=== PATIENT | female | born 1945 | race Caucasian/White ===

== ENCOUNTER 2016-10-31 09:56 | Emergency (ER) | payer OTHER ==
[2016-10-31] MEDS ORDERED: PROTONIX IV ONE (10:47)
[2016-10-31] MEDS ORDERED: SODIUM CHLORIDE 0.9% INJ ONE (10:47)
--- NOTE | 2016-10-31 10:52 | PROVIDER DOCUMENTATION ---
HPI-General Adult - General Chief Complaint: Abdominal Pain Stated Complaint: EPIGASTRIC PAIN Time Seen by Provider: 10/31/16 10:11 Source: patient Allergies/Adverse Reactions: Patient Allergies Allergy/AdvReac Type Severity Reaction Status Date / Time No Known Allergies Allergy Verified 10/31/16 10:02 Home Medications: Home Medication List Medication Instructions Recorded Confirmed Last Taken Type Aspirin [Aspir-Low] 81 mg PO DAILY 10/31/16 10/31/16 Unknown History Carvedilol 6.25 mg PO BID 10/31/16 10/31/16 Unknown History Furosemide [Lasix] 40 mg PO DAILY 10/31/16 10/31/16 Unknown History Gabapentin 300 mg PO QHS 10/31/16 10/31/16 Unknown History Meloxicam 15 mg PO PRN PRN 10/31/16 10/31/16 Unknown History Montelukast [Singulair] 10 mg PO DAILY 10/31/16 10/31/16 Unknown History Nitrofurantoin Monohyd/M-Cryst 100 mg PO BID #14 capsule 10/31/16 Unknown Rx [Macrobid 100 mg Capsule] Ondansetron [Zofran] 4 mg PO Q6H PRN PRN #20 tablet 10/31/16 Unknown Rx Pantoprazole [Protonix] 40 mg PO DAILY 10/31/16 10/31/16 Unknown History Rosuvastatin Calcium [Crestor] 40 mg PO DAILY 10/31/16 10/31/16 Unknown History Tiotropium Dougherty Inhaler 18 mcg INH DAILY 10/31/16 10/31/16 Unknown History [Spiriva] - History of Present Illness -Gen Adult Nature of Presenting Problems: 71 y/o WF c CHF, AAA (between 3-4 cm per patient), COPD and PUD, c/o epigastric pain that began 4 days. ago. they recently moved from [place] 4 days ago, and states the pain began after they were walking from the to a club house, approx 1000 ft, and she became winded, and the pain started to occur. This is a dull aching pain, no radiation, not worsened with motrin. States since her hospitalization in May 2016 for heart failure, she has not been able to walk as far. When parking at a grocery store, she can complete her entire shopping and check out before having to rest, but states it worries him since she never used to become winded. Has an appt in November with Dr. Huerta for evaluation of AAA- this was found on an MRI when she presented for back pain last year.. We do not have records accessible to us for this. Denies nasuea, vomiting, diarrhea, constipation, feves, chills or unintentional weight loss/ weight gain. Onset/Duration: reports: 4 days ago Timing: reports: still present, intermittent Associated Symptoms: reports: fatigue. denies: anxiety, arm pain, back/neck pain, chest pain, constipation, cough, diaphoresis, diarrhea, dizziness, EENT symptoms, fever/chills, genitourinary problems, headaches, heartburn, joint pain , loss of appetite, malaise, muscle aches, sinus congestion/drainage, nausea, rash, seizure, shortness of breath, sensory/motor loss, pain with inspiration, swelling/mass in abdomen, syncope, vomiting, weakness, trouble walking Similar Symptoms Previously?: No Recently seen or treated by another doctor?: No Review of Systems - Adult - REVIEW OF SYSTEMS - ADULT Constitutional: reports: see HPI, fatique. denies: chills, fever Eyes: reports: no symptoms reported. denies: decreased vision, blurred vision, double vision, eye pain Ears, Nose, Mouth & Throat: reports: no symptoms reported. denies: ear pain, nose pain, throat pain Cardiovascular: reports: no symptoms reported. denies: chest pain, irregular heart rate, palpitations Respiratory: reports: no symptoms reported. denies: cough, shortness of breath , wheezing Gastrointestinal: reports: see HPI, abdominal pain. denies: diarrhea, nausea, vomiting Genitourinary: reports: no symptoms reported. denies: dysuria, discharge, frequency Musculoskeletal: reports: no symptoms reported. denies: bone pain, back pain, joint pain, muscle aches Integumentary: reports: no symptoms reported. denies: rash Neurological: reports: no symptoms reported. denies: headache/migraines Psychiatric: reports: no symptoms reported Endocrine: reports: no symptoms reported Hematologic/Lymphatic: reports: no symptoms reported Allergic/Immunologic: reports: no symptoms reported All Other Systems: Reviewed and Negative Past History - Adult - PAST MEDICAL HISTORY-ADULT Review of Records: reports: Old Records Reviewed, Nursing Assessment Review, Medications Reviewed Major Childhood Illnesses: reports: denies history Cardiovascular: reports: aortic disease (AAA), CHF, HTN Respiratory: reports: COPD Gastrointestinal: reports: denies history Obstetrical/Gynecological: reports: denies history Genitourinary: reports: denies history Musculoskeletal: reports: denies history Neurological: reports: denies history Endocrine/Immune: reports: denies history Other Conditions: reports: denies history - PRIOR SURGERIES/PROCEDURES Surgical/Procedure History: reports: reviewed, not pertinent - IMMUNIZATION STATUS Childhood Immunizations: See Nurse Assessment Flu Vaccine: See Nurse Assessment - FAMILY HISTORY Family History: reviewed, not pertinent - SOCIAL HISTORY Smoking: denies Substance Use: none/never Alcohol Use Frequency: never Physical Exam-General - PHYSICAL EXAM-ADULT Initial Vital Signs Reviewed: Yes - CONSTITUTIONAL General Appearance: appears well, alert, no apparent distress - EYES Eyes: PERRL/EOMI, pink conjunctivae - HEAD, EARS, NOSE, MOUTH & THROAT HENMT: normocephalic/atraumatic, moist mucous membranes - NECK Neck: non-tender, full range of motion, supple, normal inspection. negative: lymphadenopathy - RESPIRATORY Respiratory: chest non-tender, lungs clear, normal breath sounds, no pleuratic chest pain, no respiratory distress, no accessory muscle use. negative: respiratory distress, decreased breath sounds, accessory muscle use, crackles, rales, rhonchi, wheezing - CARDIOVASCULAR Cardiovascular: normal peripheral pulses, regular rate, rhythm, no edema, no gallop, no JVD, no murmur - GASTROINTESTINAL (ABDOMEN) Abdominal Exam: normal bowel sounds, soft, no organomegaly, no pulsatile mass, tenderness (mild to epigastric region). negative: abdominal bruit, abnormal bowel sounds, distended, guarding, rigid, rebound - MUSCULOSKELETAL Extremity: normal range of motion, non-tender, normal gait, normal inspection, swelling Peripheral Pulses: radial (R): 2+, radial (L): 2+, dorsalis-pedis (R): 2+, dorsalis-pedis (L): 2+ - SKIN Integumentary: normal color, normal turgor, warm/dry - NEUROLOGIC Neurologic: grossly normal, no motor/sensory deficits - PSYCHIATRIC Psych/Mental Status: normal mood/affect, normal thought content, normal thought process, oriented x 3 Progress - PLAN OF CARE/RESULTS Progress/Plan/Lab Results: Vital Signs Temp Pulse Resp BP Pulse Ox 10/31/16 09:57 97.9 F 76 16 153/85 99 No Known Allergies Allergy (Verified 10/31/16 10:02) Aspirin [Aspir-Low] 81 mg PO DAILY 10/31/16 Carvedilol 6.25 mg PO BID 10/31/16 Furosemide [Lasix] 40 mg PO DAILY 10/31/16 Gabapentin 300 mg PO QHS 10/31/16 Meloxicam 15 mg PO PRN PRN 10/31/16 Montelukast [Singulair] 10 mg PO DAILY 10/31/16 Pantoprazole [Protonix] 40 mg PO DAILY 10/31/16 Rosuvastatin Calcium [Crestor] 40 mg PO DAILY 10/31/16 Tiotropium Dougherty Inhaler [Spiriva] 18 mcg INH DAILY 10/31/16 Dietary Diet NPO Start MonOct 31 1045 Laboratory 10/31/16 10/31/16 10/31/16 11:55 11:55 11:55 WBC 8.70 RBC 4.06 L Hgb 11.8 L Hct 34.9 L MCV 86.0 MCH 29.1 MCHC 33.8 RDW Std Deviation 12.4 Plt Count 273 MPV 9.9 Immature Gran % (Auto) 0.2 Neut % (Auto) 73.0 Lymph % (Auto) 14.8 L [place] % (Auto) 7.1 Eos % (Auto) 4.4 Baso % (Auto) 0.5 Immature Gran # (Auto) 0.02 Neut # (Auto) 6.35 Lymph # (Auto) 1.29 [place] # (Auto) 0.62 H Eos # (Auto) 0.38 Baso # (Auto) 0.04 Sodium Potassium Chloride Carbon Dioxide Anion Gap BUN Creatinine Estimated GFR/1.73 m2 BUN/Creatinine Ratio Glucose Calculated Osmolality Calcium Total Bilirubin AST ALT Alkaline Phosphatase Bgi-U-Bbtxrmhpyda Pept 297 Total Protein Albumin Globulin Albumin/Globulin Ratio Amylase Lipase Urine Source CLEAN CATCH Urine Color YELLOW Urine Clarity CLEAR Urine pH 7.0 Ur Specific [place] 1.000 Urine Protein NEGATIVE Urine Ketones NEGATIVE Urine Blood NEGATIVE Urine Nitrite NEGATIVE Urine Bilirubin NEGATIVE Urine Urobilinogen NORMAL Urine Microscopic RBC Not Reportable Urine WBC 2+ A Urine Microscopic WBC 20-40 A Ur Epithelial Cells <10 Urine Bacteria 1+ Urine Glucose NEGATIVE 10/31/16 11:55 WBC RBC Hgb Hct MCV MCH MCHC RDW Std Deviation Plt Count MPV Immature Gran % (Auto) Neut % (Auto) Lymph % (Auto) [place] % (Auto) Eos % (Auto) Baso % (Auto) Immature Gran # (Auto) Neut # (Auto) Lymph # (Auto) [place] # (Auto) Eos # (Auto) Baso # (Auto) Sodium 128 L Potassium 3.6 Chloride 88 L Carbon Dioxide 27 Anion Gap 13 BUN 19 Creatinine 0.9 Estimated GFR/1.73 m2 > 60 BUN/Creatinine Ratio 21 Glucose 95 Calculated Osmolality 259 Calcium 9.6 Total Bilirubin 0.50 AST 18 ALT 12 Alkaline Phosphatase 71 Wyb-O-Fbgyyedpwal Pept Total Protein 8.1 Albumin 4.8 Globulin 3.0 Albumin/Globulin Ratio 1.0 Amylase 71 Lipase 30 Urine Source Urine Color Urine Clarity Urine pH Ur Specific [place] Urine Protein Urine Ketones Urine Blood Urine Nitrite Urine Bilirubin Urine Urobilinogen Urine Microscopic RBC Urine WBC Urine Microscopic WBC Ur Epithelial Cells Urine Bacteria Urine Glucose Orders Category Date Time Status Saline Loc DIRECTED Care 10/31/16 10:45 Active NPO Diet 10/31/16 10:45 Active US ABDOMEN-COMPLETE [US] Stat Exams 10/31/16 10:45 Draft AMYLASE [CHEM] Stat Lab 10/31/16 11:55 Completed CBC WITH ELECTRONIC DIFF [HEME] Stat Lab 10/31/16 11:55 Completed COMPREHENSIVE METABOLIC PANEL [CHEM] Stat Lab 10/31/16 11:55 Completed LIPASE [CHEM] Stat Lab 10/31/16 11:55 Completed PRO B-NATRIURETIC PEPTIDE Stat Lab 10/31/16 11:[address] W/POSS RFLX CULT [URINALYSIS] Stat Lab 10/31/16 11:55 Completed URINE CULTURE [RM] Routine Lab 10/31/16 13:58 Ordered 0.9% Sodium Chloride Inj [Ns] 500 ml Med 10/31/16 12:39 Discontinued IV 999 mls/hr Morphine Med 10/31/16 11:08 Discontinued 2 mg IV NOW ONE Ondansetron [Zofran] Med 10/31/16 11:08 Discontinued 4 mg IV NOW ONE Pantoprazole [Protonix] Med 10/31/16 10:47 Discontinued 40 mg IV NOW ONE Sodium Chloride 0.9% Med 10/31/16 10:47 Discontinued 10 ml INJ NOW ONE EKG [EKG] Stat Ther 10/31/16 10:46 Ordered - ULTRASOUND (By Radiology) 1 US Study: Abdomen Impression: Abnormal (3.4 cm AAA) Departure - Departure Time of Disposition Order: 14:00 DIAGNOSIS: Acute UTI, Hyponatremia Abdominal pain Qualifiers: Abdominal location: epigastric Qualified Code(s): R10.13 - Epigastric pain AAA (abdominal aortic aneurysm) Qualifiers: Presence of rupture: without rupture Qualified Code(s): I71.4 - Abdominal aortic aneurysm, without rupture Disposition: HOME 01 Certified Medical Emergency: Emergent Condition: Stable Additional Instructions: Follow up with Dr. Huerta ED Follow Up Instructions: You have been treated by a care provider in the Emergency Department. These instructions are being provided to you so you can have an understanding of how to care for yourself upon discharge. Upon discharge from the Emergency Department, you are responsible for making arrangements for follow-up care by a physician of your choice. Take all prescribed medications as directed. Return to the Emergency Department immediately for any new or worsening symptoms. You may call the Physician Referral phone number at [phone] to obtain a list of Physicians who are taking new patients. Prescriptions: Nitrofurantoin Monohyd/M-Cryst [Macrobid 100 mg Capsule] 100 mg PO BID #14 capsule Ondansetron [Zofran] 4 mg PO Q6H PRN PRN #20 tablet PRN Reason: Nausea Attestation - Physician/ KIMO Attestation Patient care was provided by Advanced Practice Provider:: Yes Advanced Practice Provider:: Dixie Melgoza Advanced Practice Provider documentation review:: The Mid-level provider documentation, treatment plan and medical decision making was reviewed by the physician who agrees with all treatment and medical decision making by the MLP.
[2016-10-31] MEDS ORDERED: ZOFRAN IV ONE (11:08)
[2016-10-31] MEDS ORDERED: MORPHINE IV ONE (11:08)
--- NOTE | 2016-10-31 11:47 | Diag Imaging Result Document ---
PROCEDURE NAME: US ABDOMEN-COMPLETE - 10/31/2016 ABDOMINAL ULTRASOUND: FINDINGS: The pancreatic head and body are normal in appearance. The distal abdominal aorta is dilated to 4.3 cm in transverse dimension and 3.4 cm in AP dimension. The inferior vena cava is unremarkable. The liver is unremarkable, and there is antegrade flow in the portal vein. The common bile duct measures 6 mm. The gallbladder is clear and nontender. The spleen is not enlarged. There are no abnormal fluid collections. The kidneys are without evidence of hydronephrosis. There is a 3.7 cm cyst in the upper pole of the left kidney. IMPRESSION: Abdominal aortic aneurysm as described. [facility]
[2016-10-31 12:03] LABS: MANUAL DIFF NEEDED? NO
[2016-10-31 12:05] LABS: BASO% 0.5 % (0.0-0.8); EOS# 0.38 X1000 (0.0-0.7); EOS% 4.4 % (0.0-10.0); HEMATOCRIT 34.9 % (37.0-47.0); HEMOGLOBIN 11.8 g/dL (12.0-16.0); IMM GRAN# 0.02 X1000 (0.0-0.04); IMM GRAN% 0.2 % (0.0-0.5); LYMPH# 1.29 X1000 (1.2-3.4); LYMPH% 14.8 % (20.5-51.1); MCH 29.1 PG (27-31); MCHC 33.8 g/dL (33-37); MONO# 0.62 X1000 (0.11-0.59); MONO% 7.1 % (1.7-9.3); MPV 9.9 FL (7.4-10.4); PLT 273 X1000 (130-400); RBC 4.06 XMIL (4.2-5.4)
[2016-10-31 12:24] LABS: AGAP 13; ALBUMIN 4.8 g/dL (3.5-5.0); ALKALINE PHOSPHATASE 71 U/L (32-104); AMYLASE 71 U/L (20-200); BUN 19 mg/dL (8-22); CALCIUM 9.6 mg/dL (8.8-10.2); CHLORIDE 88 mmol/L (98-107); COSMO 259; GOT 18 U/L (10-30); GPT 12 U/L (10-36); LIPASE 30 U/L (13-60); POTASSIUM 3.6 mmol/L (3.5-5.1); SODIUM 128 mmol/L (136-145); TCO2 27 mmol/L (25-35); TOTAL PROTEIN 8.1 g/dL (6.3-8.3)
[2016-10-31] MEDS ORDERED: NS 500 ML IV ONE (12:39)
[2016-10-31 13:18] LABS: URINE SOURCE CLEAN CATCH
[2016-10-31 13:55] LABS: BILIRUBIN URINE NEGATIVE (NEGATIVE); BLOOD URINE NEGATIVE (NEGATIVE); CLARITY CLEAR (CLEAR); COLOR YELLOW; GLUCOSE URINE NEGATIVE (NEGATIVE); LEUKOCYTES URINE 2+ (NEGATIVE); NITRITE URINE NEGATIVE (NEGATIVE); PROTEIN URINE NEGATIVE (NEGATIVE); UROBILINOGEN URINE NORMAL
[2016-10-31 13:58] LABS: URINE CULTURE PL NEEDED? YES; URINE EPITHELIAL CELLS <10 /HPF (<10); URINE WBC 20-40 /HPF (<10)
[2016-10-31 15:17] VITALS: BP 140/081
== END 2016-10-31 14:20 | disposition home or self-care (01) ==
LOC: P.ED 09:56
DX: I71.4 Abdominal aortic aneurysm, without rupture (principal); N39.0 Urinary tract infection, site not specified; E87.1 Hypo-osmolality and hyponatremia; R10.13 Epigastric pain; R53.83 Other fatigue; R10.816 Epigastric abdominal tenderness; I50.9 Heart failure, unspecified; I10 Essential (primary) hypertension; Z79.899 Other long term (current) drug therapy; J44.9 Chronic obstructive pulmonary disease, unspecified; Z79.82 Long term (current) use of aspirin
CPT/HCPCS: 76700; 80053; 81001; 82150; 83690; 83880; 85025; 87077; 87088; 93005; C9113; J2270; J2405; J7040; S0164

== ENCOUNTER 2016-12-14 16:57 | Inpatient (IN) ==
[2016-12-14] MEDS ORDERED: ASPIRIN PO STA (17:27)
[2016-12-14] MEDS ORDERED: NS 1,000 ML IV ONE ×2 (17:27→19:43)
[2016-12-14] MEDS ORDERED: TYLENOL PO ONE (17:33)
--- NOTE | 2016-12-14 17:33 | PROVIDER DOCUMENTATION ---
This chart was entered by Pantera Stokes Scribe, acting as scribe for Miryam Rosenberg MD. HPI-Fever - General Chief Complaint: Fever Stated Complaint: UTI SX Time Seen by Provider: 12/14/16 17:18 Source: patient, family Allergies/Adverse Reactions: Patient Allergies Allergy/AdvReac Type Severity Reaction Status Date / Time No Known Allergies Allergy Verified 10/31/16 10:02 Home Medications: Home Medication List Medication Instructions Recorded Confirmed Last Taken Type Aspirin [Aspir-Low] 81 mg PO DAILY 10/31/16 12/15/16 12/13/16 History Carvedilol 6.25 mg PO BID 10/31/16 12/15/16 12/13/16 History Furosemide [Lasix] 40 mg PO DAILY 10/31/16 12/15/16 12/13/16 History Gabapentin 300 mg PO QHS 10/31/16 12/15/16 12/13/16 History Meloxicam 15 mg PO DAILY PRN PRN 10/31/16 12/15/16 12/13/16 History Montelukast [Singulair] 10 mg PO DAILY 10/31/16 12/15/16 12/13/16 History Pantoprazole [Protonix] 40 mg PO DAILY@0700 10/31/16 12/15/16 12/13/16 History Tiotropium Alfred Inhaler 18 mcg INH DAILY 10/31/16 12/15/16 12/13/16 History [Spiriva] Albuterol Sulfate [Ventolin Hfa] 1 inh INH DIRECTED 12/14/16 12/15/16 History Rosuvastatin Calcium [Crestor] 40 mg PO DAILY 12/15/16 12/15/16 12/13/16 History - History of Present Illness-Fever Nature of Presenting Problem: patient is a 71 y/o F that presents to the ER with fever, headache, weakness, urinary frequency and dysruia, abdominal pain, n/v, and decreased ability to ambulate. patient started to have urinary symptoms last week, took OTC meds. Today she began to have high fever( 104), n/v, weakness, and abdominal pain. patient was treated a month ago x 2 for UTI's. Fever Severity/Quality: reports: greater than 102 F Onset/Duration: reports: gradual, 1 week ago Timing: reports: still present, getting worse (today) Severity: reports: severe Context: reports: none Recent Illness?: reports: UTI Cognitive Baseline: alert, oriented x3 Modifying Factors: improves with: nothing Associated Symptoms: reports: dizziness, fatigue, fever/chills, genitourinary problems, headaches, loss of appetite, nausea, vomiting, weakness, trouble walking. denies: back/neck pain, chest pain, cough, rash, shortness of breath Similar Symptoms Previously?: Yes Recently seen or treated by another doctor?: Yes - Glascow Coma Score Best Eye Response (Denise): (4) open spontaneously Best Verbal Response (Denise): (5) oriented Best Motor Response (Denise): (6) obeys commands Denise Total: 15 Review of Systems - Adult - REVIEW OF SYSTEMS - ADULT Constitutional: reports: chills, fever, fatique Eyes: denies: decreased vision, blurred vision, double vision Ears, Nose, Mouth & Throat: denies: ear discharge, ear pain, sinus problem, throat pain, throat swelling Cardiovascular: denies: chest pain, palpitations Respiratory: denies: cough, shortness of breath, wheezing Gastrointestinal: reports: abdominal pain, nausea, vomiting. denies: constipation, diarrhea Genitourinary: reports: dysuria, frequency, urgency. denies: hesitency Musculoskeletal: reports: muscle weakness. denies: back pain, joint pain Integumentary: reports: no symptoms reported Neurological: reports: headache/migraines. denies: dizziness/vertigo, seizure, syncope Psychiatric: reports: no symptoms reported Endocrine: reports: no symptoms reported Hematologic/Lymphatic: reports: no symptoms reported Allergic/Immunologic: reports: no symptoms reported All Other Systems: Reviewed and Negative Past History - Adult - PAST MEDICAL HISTORY-ADULT Review of Records: reports: Old Records Reviewed, Nursing Assessment Review, Medications Reviewed Cardiovascular: reports: aortic disease (AAA), CHF, HTN Respiratory: reports: COPD - PRIOR SURGERIES/PROCEDURES Surgical/Procedure History: reports: reviewed, not pertinent - IMMUNIZATION STATUS Childhood Immunizations: See Nurse Assessment Flu Vaccine: See Nurse Assessment - FAMILY HISTORY Family History: reviewed, not pertinent - SOCIAL HISTORY Smoking: non-smoker Living Situation: family Physical Exam-General - PHYSICAL EXAM-ADULT Initial Vital Signs Reviewed: Yes - CONSTITUTIONAL General Appearance: alert, mild distress, moderate distress - EYES Eyes: PERRL/EOMI, pink conjunctivae - HEAD, EARS, NOSE, MOUTH & THROAT HENMT: normocephalic/atraumatic, moist mucous membranes, normal ENT inspection - NECK Neck: full range of motion, normal inspection - RESPIRATORY Respiratory: lungs clear, normal breath sounds, no respiratory distress, no accessory muscle use - CARDIOVASCULAR Cardiovascular: no JVD, no murmur, tachycardia - GASTROINTESTINAL (ABDOMEN) Abdominal Exam: normal bowel sounds, soft, tenderness (suprapubic) - MUSCULOSKELETAL Extremity: normal range of motion, normal inspection, no pedal edema - SKIN Integumentary: normal color, warm/dry - NEUROLOGIC Neurologic: grossly normal, no motor/sensory deficits - PSYCHIATRIC Psych/Mental Status: normal mood/affect, normal thought content, normal thought process, oriented x 3 Progress - PLAN OF CARE/RESULTS Progress/Plan/Lab Results: Laboratory Results - last 24 hr 12/14/16 12/14/16 12/14/16 17:44 17:44 17:44 WBC RBC Hgb Hct MCV MCH MCHC RDW Std Deviation Plt Count MPV Immature Gran % (Auto) Neut % (Auto) Lymph % (Auto) [place] % (Auto) Eos % (Auto) Baso % (Auto) Immature Gran # (Auto) Neut # (Auto) Lymph # (Auto) [place] # (Auto) Eos # (Auto) Baso # (Auto) PT INR APTT (Factor Assay) D-Dimer Sodium 135 L Potassium 3.2 L Chloride 96 L Carbon Dioxide 24 L Anion Gap 15 BUN 20 Creatinine 1.1 H Estimated GFR/1.73 m2 49 BUN/Creatinine Ratio 18 Glucose 131 H Calculated Osmolality 275 Calcium 9.3 Magnesium 1.7 Total Bilirubin 0.60 AST 54 H ALT 49 H Alkaline Phosphatase 68 Creatine Kinase 65 Troponin T < 0.010 Xsb-U-Imcfdhhhadz Pept Total Protein 7.3 Albumin 4.2 Globulin 3.0 Albumin/Globulin Ratio 1.0 Plasma Lactate 1.4 Urine Source Urine Color Urine Clarity Urine pH Ur Specific [place] Urine Protein Urine Ketones Urine Blood Urine Nitrite Urine Bilirubin Urine Urobilinogen Urine Microscopic RBC Urine WBC Urine Microscopic WBC Ur Epithelial Cells Urine Bacteria Urine Glucose 12/14/16 12/14/16 12/14/16 17:44 17:44 17:44 WBC 10.47 RBC 3.46 L Hgb 10.2 L Hct 31.3 L MCV 90.5 MCH 29.5 MCHC 32.6 L RDW Std Deviation 13.5 Plt Count 184 MPV 10.1 Immature Gran % (Auto) 0.2 Neut % (Auto) 89.5 H Lymph % (Auto) 4.1 L [place] % (Auto) 5.2 Eos % (Auto) 0.7 Baso % (Auto) 0.3 Immature Gran # (Auto) 0.02 Neut # (Auto) 9.38 H Lymph # (Auto) 0.43 L [place] # (Auto) 0.54 Eos # (Auto) 0.07 Baso # (Auto) 0.03 PT 12.9 INR 0.94 APTT (Factor Assay) 34.2 D-Dimer 1.24 H Sodium Potassium Chloride Carbon Dioxide Anion Gap BUN Creatinine Estimated GFR/1.73 m2 BUN/Creatinine Ratio Glucose Calculated Osmolality Calcium Magnesium Total Bilirubin AST ALT Alkaline Phosphatase Creatine Kinase Troponin T Cim-C-Fgmjoerewhb Pept 846 H Total Protein Albumin Globulin Albumin/Globulin Ratio Plasma Lactate Urine Source Urine Color Urine Clarity Urine pH Ur Specific [place] Urine Protein Urine Ketones Urine Blood Urine Nitrite Urine Bilirubin Urine Urobilinogen Urine Microscopic RBC Urine WBC Urine Microscopic WBC Ur Epithelial Cells Urine Bacteria Urine Glucose 12/14/16 18:20 WBC RBC Hgb Hct MCV MCH MCHC RDW Std Deviation Plt Count MPV Immature Gran % (Auto) Neut % (Auto) Lymph % (Auto) [place] % (Auto) Eos % (Auto) Baso % (Auto) Immature Gran # (Auto) Neut # (Auto) Lymph # (Auto) [place] # (Auto) Eos # (Auto) Baso # (Auto) PT INR APTT (Factor Assay) D-Dimer Sodium Potassium Chloride Carbon Dioxide Anion Gap BUN Creatinine Estimated GFR/1.73 m2 BUN/Creatinine Ratio Glucose Calculated Osmolality Calcium Magnesium Total Bilirubin AST ALT Alkaline Phosphatase Creatine Kinase Troponin T Pwf-X-Novmvjrrbki Pept Total Protein Albumin Globulin Albumin/Globulin Ratio Plasma Lactate Urine Source CLEAN CATCH Urine Color YELLOW Urine Clarity SL. CLOUDY A Urine pH 6.5 Ur Specific [place] 1.005 Urine Protein TRACE A Urine Ketones NEGATIVE Urine Blood 2+ A Urine Nitrite POSITIVE A Urine Bilirubin NEGATIVE Urine Urobilinogen NORMAL Urine Microscopic RBC <10 Urine WBC 2+ A Urine Microscopic WBC TNTC A Ur Epithelial Cells <10 Urine Bacteria 3+ Urine Glucose NEGATIVE Orders Category Date Time Status Admit - [facility] Routine AdmDCTranf 12/14/16 19:43 Ordered Activity - Bed Rest with BRP ORDERED Care 12/14/16 19:43 Active Cardiac Monitoring DIRECTED Care 12/14/16 17:27 Completed Lynn Cath Insertion ORDERED Care 12/14/16 17:27 Active Saline Loc NOW Care 12/14/16 17:27 Active Vital Signs Order Q 4-HR ASSESS Care 12/14/16 19:43 Active Heart Healthy Diet Diet 12/14/16 19:44 Active CHEST-PORTABLE [RAD] Stat Exams 12/14/16 17:27 Taken BLOOD CULTURE [BLDCUL] Stat Lab 12/14/16 17:54 Results CBC WITH ELECTRONIC DIFF [HEME] Stat Lab 12/14/16 17:44 Completed CK PROFILE [SP CHEM] Stat Lab 12/14/16 17:44 Completed COMPREHENSIVE METABOLIC PANEL [CHEM] Stat Lab 12/14/16 17:44 Completed D-DIMER PL [COAG] Stat Lab 12/14/16 17:44 Completed LACTATE, PLASMA [CHEM] Stat Lab 12/14/16 17:44 Completed MAGNESIUM [CHEM] Stat Lab 12/14/16 17:44 Completed PRO B-NATRIURETIC PEPTIDE Stat Lab 12/14/16 17:44 Completed [address]IME WITH INR PL [COAG] Stat Lab 12/14/16 17:[address] [COAG] Stat Lab 12/14/16 17:44 Completed TROPONIN T Stat Lab 12/14/16 17:[address] W/POSS RFLX CULT [URINALYSIS] Stat Lab 12/14/16 18:20 Completed URINE CULTURE [RM] Routine Lab 12/14/16 19:31 Received 0.9% Sodium Chloride Inj [Ns] 1,000 ml Med 12/14/16 19:43 Discontinued IV 125 mls/hr 0.9% Sodium Chloride Inj [Ns] 1,000 ml Med 12/14/16 17:27 Discontinued IV 500 mls/hr Acetaminophen [Tylenol] Med 12/14/16 17:33 Discontinued 1,000 mg PO NOW ONE Acetaminophen [Tylenol] Med 12/14/16 19:43 Active 650 mg PO Q6H PRN PRN Aspirin Med 12/14/16 17:27 Discontinued 325 mg PO STAT STA Levofloxacin 500 mg/D5w [Levaquin 500 mg/D5w] Med 12/14/16 19:42 Discontinued 500 mg in 100 ml IV NOW Telemetry [OM.EQ] Routine Oth 12/14/16 19:43 Active EKG [EKG] Stat Ther 12/14/16 17:27 Draft Transfer/Admit Order [TRANSFER] Routine Transfer 12/14/16 19:45 Completed Result Diagrams: 12/14/16 17:44 12/14/16 17:44 - CHANGE OF SHIFT REPORT (ED Provider) Report Given and Care Transferred to:: Time of Transfer: 18:00 Items Pending: Labs, XRAY Results Departure - Departure Time of Disposition Decision: 22:00 DIAGNOSIS: Fever, UTI (urinary tract infection), Hypotension Disposition: ADMITTED INPATIENT 09 Certified Medical Emergency: Emergent Condition: Stable - Critical Care Note This patient required my direct & personal management of CC.: No This chart was documented by the indicated scribe, (Pantera Stokes, Scribe) and accurately reflects the services I performed and decisions made by me, Miryam Rosenberg MD, as attested by the provider's signature.
--- NOTE | 2016-12-14 17:51 | EKG Report ---
Test Performed on : 12/14/2016 5:33:19 PM Test Reason : CHEST PAIN Blood Pressure : / mmHG Vent. Rate : 106 BPM Atrial Rate : 106 BPM P-R Int : 138 ms QRS Dur : 082 ms QT Int : 322 ms P-R-T Axes : 072 057 052 degrees QTc Int : 427 ms Sinus tachycardia. Possible Left atrial enlargement ST depression, consider subendocardial injury Abnormal ECG When compared with ECG of 04-DEC-2007 09:50, ST now depressed in Anterolateral leads Nonspecific T wave abnormality now evident in Inferior leads Unconfirmed Result
[2016-12-14 18:03] LABS: MANUAL DIFF NEEDED? NO
[2016-12-14 18:15] LABS: BASO% 0.3 % (0.0-0.8); EOS# 0.07 X1000 (0.0-0.7); EOS% 0.7 % (0.0-10.0); HEMATOCRIT 31.3 % (37.0-47.0); HEMOGLOBIN 10.2 g/dL (12.0-16.0); IMM GRAN# 0.02 X1000 (0.0-0.04); IMM GRAN% 0.2 % (0.0-0.5); LYMPH# 0.43 X1000 (1.2-3.4); LYMPH% 4.1 % (20.5-51.1); MCH 29.5 PG (27-31); MCHC 32.6 g/dL (33-37); MCV 90.5 FL (81-99); MONO# 0.54 X1000 (0.11-0.59); MONO% 5.2 % (1.7-9.3); MPV 10.1 FL (7.4-10.4); NEUT% 89.5 % (42.2-75.2); PLT 184 X1000 (130-400); RBC 3.46 XMIL (4.2-5.4)
[2016-12-14 18:21] LABS: INR 0.94 (0.86-1.15); PROTIME 12.9 Seconds (12.1-15.5)
[2016-12-14 18:22] LABS: PTT PL 34.2 Seconds (22.6-43.9)
[2016-12-14 18:30] LABS: ALBUMIN 4.2 g/dL (3.5-5.0); CALCIUM 9.3 mg/dL (8.8-10.2); MAGNESIUM 1.7 mg/dL (1.5-2.7); POTASSIUM 3.2 mmol/L (3.5-5.1); TOTAL BILIRUBIN 0.6 mg/dL (0.20-1.00); TOTAL PROTEIN 7.3 g/dL (6.3-8.3)
[2016-12-14 19:29] LABS: BILIRUBIN URINE NEGATIVE (NEGATIVE); BLOOD URINE 2+ (NEGATIVE); CLARITY SL. CLOUDY (CLEAR); COLOR YELLOW; GLUCOSE URINE NEGATIVE (NEGATIVE); LEUKOCYTES URINE 2+ (NEGATIVE); NITRITE URINE POSITIVE (NEGATIVE); PH URINE 6.5; PROTEIN URINE TRACE mg/dL (NEGATIVE); SP GRAVITY URINE 1.005; UROBILINOGEN URINE NORMAL
[2016-12-14 19:30] LABS: URINE WBC TNTC /HPF (<10)
[2016-12-14 19:31] LABS: URINE CULTURE PL NEEDED? YES; URINE EPITHELIAL CELLS <10 /HPF (<10); URINE RBC <10 /HPF (<10); URINE SOURCE CLEAN CATCH
[2016-12-14] MEDS ORDERED: LEVAQUIN 500 MG/D5W 500 MG/100 ML IVPB IV ONE (19:42)
[2016-12-14] MEDS ORDERED: TYLENOL PO PRN ×2 (19:43→20:54)
[2016-12-14] MEDS ORDERED: ZOFRAN IV PRN (20:54)
[2016-12-14] MEDS: ROCEPHIN 1 GM/NS 1 GM/50 ML IVPB IV SCH (22:45)
--- NOTE | 2016-12-15 06:57 | ED EKG INTERP ---
This chart was entered by Jenise Samaniego Scribe, acting as scribe for Miryam Rosenberg MD. EKG Interpretation - EKG Time of EKG reading by physician:: 17:33 EKG Read and Signed by:: Miryam Rosenberg EKG Interpretation (*Must complete 3 of following elements*): Abnormal Rate: 106 Rhythm: sinus tachycardia ST Wave: non-specific ST changes (ST depression, consider subendocardial injury) Comments: possible LAE This chart was documented by the indicated scribe, (Jenise Samaniego Scribe) and accurately reflects the services I performed and decisions made by me, Miryam Rosenberg MD, as attested by the provider's signature.
--- NOTE | 2016-12-15 07:03 | Diag Imaging Result Document ---
PROCEDURE NAME: CHEST-PORTABLE - 12/14/2016 PORTABLE CHEST: COMPARISON: No comparison films. FINDINGS: The lungs are hyperexpanded. The heart is not enlarged. There is granuloma in the right costophrenic angle. Mild increased markings in the left costophrenic angle. No pleural effusions identified. IMPRESSION: 1. Small infiltrate in the left base. 2. Emphysema.
[2016-12-15] MEDS ORDERED: MOBIC PO PRN (08:01)
--- NOTE | 2016-12-15 08:27 | PROGRESS NOTE ---
DATE: 12/15/2016 SUBJECTIVE: The patient notes she is feeling a little bit better, although she did have a bad night last night. She had a headache most of the night. She has occasional chills. Denies any respiratory issues. Denies any coughing. PHYSICAL EXAMINATION: Vital Signs: Temperature 99, pulse 93, respiratory rate 18, BP 135/59, saturation 100% on room air. General: Patient is awake, alert. She is currently in no real respiratory distress. She is pleasant to talk with. Speech is regular. Memory is intact. Neck: Supple. CV: Regular rate. Chest: Relatively clear. Abdomen: Soft, nondistended diffusely but mildly tender. Extremities: Moves all extremities. Neurologic: No focal changes. Skin: Warm and dry. No rashes. LABS: Pending this a.m. D-dimer elevated at 1.2. Potassium 3.2, creatinine 1.1. ASSESSMENT: 1. Urinary tract infection. 2. Elevated D-dimer. 3. Headache. 4. Fever. 5. Tachycardia. 6. Sepsis secondary to a urinary source. 7. Hypoxemia, improved. PLAN: We will continue the patient on Rocephin. We will check her urine and blood cultures. Continue to follow her blood pressures. We will work up her elevated D-dimer and we will follow. cc: Loki Marcus MD
[2016-12-15] MEDS: LASIX PO SCH (08:39)
[2016-12-15] MEDS: SINGULAIR PO SCH (08:40)
[2016-12-15] MEDS: ASPIRIN EC PO SCH (08:40)
[2016-12-15] MEDS: COREG PO SCH ×2 (08:40→21:14)
[2016-12-15 11:10] LABS: HEMATOCRIT 28.2 % (37.0-47.0); HEMOGLOBIN 9.2 g/dL (12.0-16.0); MCH 29.6 PG (27-31); MCHC 32.6 g/dL (33-37); MCV 90.7 FL (81-99); MPV 10.4 FL (7.4-10.4); RBC 3.11 XMIL (4.2-5.4)
[2016-12-15 11:34] LABS: AGAP 12; ALBUMIN 3.7 g/dL (3.5-5.0); ALKALINE PHOSPHATASE 61 U/L (32-104); BUN 12 mg/dL (8-22); CALCIUM 8.7 mg/dL (8.8-10.2); CHLORIDE 99 mmol/L (98-107); COSMO 267; GOT 34 U/L (10-30); GPT 38 U/L (10-36); MAGNESIUM 1.9 mg/dL (1.5-2.7); POTASSIUM 3.5 mmol/L (3.5-5.1); SODIUM 133 mmol/L (136-145); TCO2 23 mmol/L (25-35); TOTAL PROTEIN 6.6 g/dL (6.3-8.3)
--- NOTE | 2016-12-15 13:20 | Diag Imaging Result Document ---
PROCEDURE NAME: ANGIOGRAM/PULMONARY ARTERIES - 12/15/2016 CT CHEST WITH INTRAVENOUS CONTRAST. FINDINGS: There is normal opacification of the pulmonary arteries and their major branches. Heart is mildly enlarged. No pleural effusions. No thoracic aortic aneurysm or dissection. Moderate atherosclerosis. No enlarged mediastinal or hilar lymph nodes. There are several calcified right hilar lymph nodes and there is a calcified granuloma scattered in the right lung. Prominent emphysematous changes. No consolidation. Increased markings in the left base believed to be fibrosis. IMPRESSION: 1. No pulmonary emboli. 2. There is evidence of a prior granulomatous infection, but no acute pneumonia. 3. Severe emphysema. 4. Scarring in the left base. 5. Mild cardiomegaly.
--- NOTE | 2016-12-15 14:11 | EKG Report ---
Test Performed on : 12/15/2016 2:03:02 PM Test Reason : Chest pain Blood Pressure : / mmHG Vent. Rate : 074 BPM Atrial Rate : 074 BPM P-R Int : 136 ms QRS Dur : 080 ms QT Int : 422 ms P-R-T Axes : 058 066 069 degrees QTc Int : 468 ms Normal sinus rhythm. Nonspecific ST abnormality Abnormal ECG When compared with ECG of 14-DEC-2016 17:33, ST no longer depressed in Lateral leads T wave amplitude has increased in Anterior leads Confirmed by Kuldip Mckeon MD ([id number]) on 01/11/2017 10:16:34 PM
--- NOTE | 2016-12-15 15:50 | HISTORY AND PHYSICAL ---
CHIEF COMPLAINT: Fever, urinary tract infection. HISTORY OF PRESENT ILLNESS: This is a 71-year-old female with a history of prior UTI who presented to the emergency room complaining of fever, headache, weakness, frequency, and dysuria, along with abdominal pain, nausea, and vomiting. She states that she had an Escherichia coli UTI in October, had antibiotic coverage, and states symptoms left for just 1 week or so, and she has been treated twice sent with continued symptoms. She stated she had a fever of 104 prior to coming to the emergency room. She did have a fever of 103.1 on arrival with urine being positive nitrites, too numerous to count white blood cells, and 3+ bacteria. She was given IV hydration, as well as Levaquin IV, and admitted for further evaluation and treatment. PAST MEDICAL HISTORY: CAD, status post IL; abdominal aortic aneurysm, COPD, history of breast cancer, and ulcers. PAST SURGICAL HISTORY: Hysterectomy and bladder repair. SOCIAL HISTORY: She denies alcohol, tobacco, or illicit drug use. ALLERGIES: No known drug allergies. HOME MEDICATIONS: A list will be obtained. REVIEW OF SYSTEMS: A 14-point review of systems is discussed with the patient with pertinent positives stated in the HPI. She denied chest pain, palpitations, syncope, dizziness, any nausea, black or bloody vomitus, black or bloody stools, hematuria. PHYSICAL EXAMINATION: GENERAL: This is a 71-year-old female who is sitting in the bed, in no distress. VITAL SIGNS: Blood pressure is 121/61 with a heart rate of 95, temperature is 99 degrees with a T- max of 103 degrees, oxygen saturations are 95% on room air. CARDIOVASCULAR: Regular rate and rhythm. S1 and S2 appreciated. PULMONARY: Breath sounds are clear with no increased work of breathing noted. GASTROINTESTINAL: The abdomen is soft, with suprapubic tenderness to palpation. Bowel sounds in all 4 quadrants. MUSCULOSKELETAL: Good range of motion of joints. BACK: LEFT CVAT. No spine tenderness. MUSCULOSKELETAL: Good range of motion of the joints. EXTREMITIES: No clubbing, cyanosis, or edema. Calves are nontender. Pulses are palpable x4. NEUROLOGIC: She is alert and oriented x3. DIAGNOSTICS: WBC is 10.4 with hemoglobin 10.2, hematocrit 31.3, and platelets of 184,000. D- dimer is 1.24. Sodium 135, potassium 3.2, BUN 20, creatinine 1.1, with a glucose of 131. Chest x-ray revealed a small infiltrate in the left base and emphysema. ASSESSMENT: 1. Pyelonephritis - recent E Coli UTI persistent after 2 rounds outpt antibiotics 2. Left lower lobe infiltrate. 3. Elevated D-dimer. 4. Sepsis secondary to urinary source. 5. Fever, tachycardia. 6. Hypoxemia, improving. 7. GERD - no diagnosed history of ulcers PLAN: The patient will be admitted to the hospital, placed on telemetry. We will continue with antibiotic coverage of Rocephin. Vancomycin Identify her home medications and continue as appropriate. Once culture and sensitivity return, antibiotics may be changed if appropriate according to sensitivity results. We will obtain a CTA pulmonary and venous ultrasound in the morning. We will continue with gentle IV hydration. Further treatments pending hospital course. Dictated by PEÑA Cerna for Loki Marcus MD cc: PEÑA Cerna MD MTDD
[2016-12-15] MEDS: NS 1,000 ML IV SCH (16:10)
[2016-12-15] MEDS ORDERED: PERCOCET-5 PO PRN (17:00)
[2016-12-15] MEDS ORDERED: ZOFRAN IV PRN (17:02)
[2016-12-15] MEDS ORDERED: VANCOMYCIN 1 GM/NS 1 GM/250 ML IVPB IV ONE (17:30)
[2016-12-15] MEDS: LOVENOX SUBQ SCH (18:18)
[2016-12-15] MEDS ORDERED: BENADRYL PO ONE (19:36)
[2016-12-15] MEDS: DUONEB (A & A) INH PRN (19:51)
[2016-12-15] MEDS: BROVANA NEB INH SCH (19:51)
[2016-12-15] MEDS: NEURONTIN PO SCH (21:14)
[2016-12-15] MEDS: CRESTOR PO SCH (21:14)
[2016-12-15] MEDS: ROCEPHIN 1 GM/NS 1 GM/50 ML IVPB IV SCH (21:14)
[2016-12-16] MEDS: LOVENOX SUBQ SCH ×2 (04:03→17:41)
[2016-12-16] MEDS: PROTONIX PO SCH (06:16)
[2016-12-16] MEDS: NS 1,000 ML IV SCH (06:19)
[2016-12-16 06:27] LABS: HEMATOCRIT 27.3 % (37.0-47.0); HEMOGLOBIN 8.8 g/dL (12.0-16.0); MCH 29.6 PG (27-31); MCHC 32.2 g/dL (33-37); MCV 91.9 FL (81-99); MPV 10.6 FL (7.4-10.4); RBC 2.97 XMIL (4.2-5.4)
[2016-12-16 06:38] LABS: AGAP 13; ALBUMIN 3.3 g/dL (3.5-5.0); ALKALINE PHOSPHATASE 63 U/L (32-104); BUN 10 mg/dL (8-22); CALCIUM 8.3 mg/dL (8.8-10.2); CHLORIDE 98 mmol/L (98-107); COSMO 267; GOT 24 U/L (10-30); GPT 27 U/L (10-36); SODIUM 134 mmol/L (136-145); TCO2 23 mmol/L (25-35); TOTAL PROTEIN 6.3 g/dL (6.3-8.3)
--- NOTE | 2016-12-16 07:11 | Extremity Venous Study ---
PROCEDURE NAME: Venous U/S Bilateral Legs - 12/15/2016 BILATERAL LOWER EXTREMITY VENOUS DOPPLER ULTRASOUND: FINDINGS: RIGHT: There is good flow and compressibility in the veins of the right lower extremity. No thrombus. Normal augmentation. LEFT: There is occlusive thrombus in the distal superficial femoral vein. Nonocclusive thrombus in the popliteal vein. This is only partially compressible. IMPRESSION: Thrombus in the left lower extremity in the superficial femoral vein and popliteal vein. A verbal report was given to Ashley at 3:12 p.m.
[2016-12-16] MEDS: DUONEB (A & A) INH PRN ×2 (07:50→19:39)
[2016-12-16] MEDS: BROVANA NEB INH SCH ×2 (07:50→19:39)
[2016-12-16] MEDS: SPIRIVA INH SCH (07:50)
[2016-12-16] MEDS ORDERED: KLOR-CON PO ONE (08:38)
[2016-12-16] MEDS ORDERED: COUMADIN PO ONE (08:39)
--- NOTE | 2016-12-16 09:19 | PROGRESS NOTE ---
DATE: 12/16/2016 SUBJECTIVE: Patient without any new complaints. She states she is feeling a little bit better. She denies any fevers or chills, denies any nausea or vomiting. OBJECTIVE: Vital signs: Temp 98, pulse 75, respiratory rate 16, BP 117/57, satting 96% on room air. General: The patient is awake, alert, oriented. She is currently in no real respiratory distress. She is pleasant to talk with. Speech is regular, memory is intact. Neck: Supple. CV: Regular rate. Chest: Relatively clear. Abdomen: Soft. Extremities: She moves all extremities. Neurological: No focal changes. Skin: Warm and dry, no rashes. LABS: Hemoglobin and hematocrit 8 and 27. Sodium 134, potassium 3.0. ASSESSMENT: 1. Urinary tract infection with gram-negative rods. Continue antibiotics. 2. Hypokalemia. Will replace. 3. Hypertension. 4. Chronic reflux. 5. Chronic arthritis. 6. Deep venous thrombosis, left lower extremity, superficial femoral vein and popliteal vein. The patient does not want Xarelto because she states it disfigured her sister's face. We will attempt Eliquis if affordable. Otherwise, she will continue with Lovenox until her INR is greater than 2. Discussed with patient she does need to get out of bed and begin ambulation. Will continue to follow her urine culture, continue her current medications and Rocephin. cc: Loki Marcus MD
[2016-12-16] MEDS: LASIX PO SCH (09:20)
[2016-12-16] MEDS: SINGULAIR PO SCH (09:20)
[2016-12-16] MEDS: ASPIRIN EC PO SCH (09:20)
[2016-12-16] MEDS: COREG PO SCH ×2 (09:20→20:03)
[2016-12-16] MEDS: CRESTOR PO SCH (20:03)
[2016-12-16] MEDS: NEURONTIN PO SCH (20:03)
[2016-12-16] MEDS: ROCEPHIN 1 GM/NS 1 GM/50 ML IVPB IV SCH (20:03)
[2016-12-17] MEDS: LOVENOX SUBQ SCH (04:09)
[2016-12-17] MEDS: PROTONIX PO SCH (06:24)
[2016-12-17] MEDS: DUONEB (A & A) INH PRN (07:30)
[2016-12-17] MEDS: BROVANA NEB INH SCH (07:30)
[2016-12-17] MEDS: SPIRIVA INH SCH (07:30)
[2016-12-17] MEDS: LASIX PO SCH (09:20)
[2016-12-17] MEDS: COREG PO SCH (09:20)
[2016-12-17] MEDS: SINGULAIR PO SCH (09:21)
[2016-12-17] MEDS: ASPIRIN EC PO SCH (11:20)
[2016-12-17 11:31] VITALS: BP 129/80
[2016-12-17] MEDS ORDERED: ELIQUIS PO SCH (21:00)
--- NOTE | 2016-12-18 01:13 | DISCHARGE SUMMARY ---
ADMISSION DATE: 12/14/2016 DISCHARGE DATE: 12/17/2016 DISCHARGE DIAGNOSES: 1. Escherichia coli urinary tract infection sensitive to Levaquin. 2. Anemia of chronic disease. Hemoglobin and hematocrit 8.8 and 27. No symptoms of bleeding. 3. Deep vein thrombosis left lower extremity on Eliquis. 4. Hypokalemia replaced. 5. Hypocalcemia. Discussed patient she needs to take calcium each day. 6. Acute hepatitis. AST, ALT both 54 and 49 on admit, 24 and 27 on discharge. 7. Mild protein calorie malnutrition. 8. Known coronary artery disease with a history of myocardial infarction. 9. Chronic obstructive pulmonary disease. PRIMARY CARE: Dr. Taveras. CONSULTATIONS: None. PROCEDURE: None. BRIEF HOSPITAL COURSE: The patient is a 71-year-old female who was admitted as noted on the HPI. Treated in usual fashion. She was noted to have pyelonephritis. She had recent E. coli UTI and had been on 2 separate rounds of antibiotics. She again has an E. coli UTI that appears to be pansensitive and is highly sensitive to Levaquin with an BRAD less than 0.12. Left lower lobe infiltrate improved. Left lower extremity DVT Again this time she was noted to have an E. coli UTI that was thankfully highly sensitive to Levaquin with an BRAD of less than 0.12. The patient was admitted to the hospital. Placed on IV antibiotics. She continued to improve. She was noted to have an elevated D-dimer and therefore ultrasound and workup was performed. CTA was negative although she does have a left lower extremity DVT and was started on Lovenox. Patient thankfully he is able to afford Eliquis and was transitioned over to this. She thankfully had an uneventful hospital course. On discharge she was able to ambulate the room without any difficulty. She was feeling better and therefore she will be discharged home. DISPOSITION: The patient will be discharged home on Eliquis 5 mg twice a day, Levaquin 500 mg once a day. She will follow up with Dr. Taveras in 1 week to recheck her UA to ensure that the E. coli has cleared. Otherwise no change will be made on her chronic home medications as noted on the HPI. TIME SPENT: Thirty-five minutes was spent in discharge planning. cc: Eduar Taveras MD
== END 2016-12-17 14:14 | disposition home or self-care (01) ==
LOC: P.ED 16:57 → SUATTDRO 20:15 → P.MEDSURG 20:15
PROVIDERS: ATTEND Family Medicine